=== PATIENT | female | born 1945 | race Caucasian/White ===

== ENCOUNTER → 2017-08-05 | Emergency (ER) | payer OTHER ==
[~2017-08-05] VITALS: Ht 157.5 cm; Wt 63.5 kg
[~2017-08-05] MED LIST: AMOX1TAB12 PO; KETO10TA2 PO; MUPIROCIN22 GM TOP; ORPHENADRINE C100 MG PO; SYNTHROID137 MCG
== END | disposition home or self-care (01) ==
LOC: ER 16:34
DX: S00.33XA Contusion of nose, initial encounter (principal); S19.9XXA Unspecified injury of neck, initial encounter; I10 Essential (primary) hypertension; W01.198A Fall on same level from slipping, tripping and stumbling with subsequent striking against other object, initial encounter; Y93.01 Activity, walking, marching and hiking; Y92.480 Sidewalk as the place of occurrence of the external cause; Y99.8 Other external cause status

== ENCOUNTER → 2017-08-12 11:32 | Outpatient (CLI) | payer OTHER | END | disposition home or self-care (01) | LOC: LAB 11:32 | DX: I10 Essential (primary) hypertension (principal); M54.5 Low back pain; E55.9 Vitamin D deficiency, unspecified; E03.8 Other specified hypothyroidism; E66.8 Other obesity; E11.51 Type 2 diabetes mellitus with diabetic peripheral angiopathy without gangrene; E11.9 Type 2 diabetes mellitus without complications; E11.42 Type 2 diabetes mellitus with diabetic polyneuropathy; K21.9 Gastro-esophageal reflux disease without esophagitis; K81.9 Cholecystitis, unspecified; E78.89 Other lipoprotein metabolism disorders; F41.8 Other specified anxiety disorders ==

== ENCOUNTER 2018-06-17 12:57 | Emergency (ER) | payer OTHER ==
[~2018-06-17] VITALS: Ht 157.5 cm; Wt 63.0 kg
== END 2018-06-17 18:05 | disposition home or self-care (01) ==
LOC: ER 12:57
DX: S00.83XA Contusion of other part of head, initial encounter (principal); S60.211A Contusion of right wrist, initial encounter; S80.01XA Contusion of right knee, initial encounter; W18.39XA Other fall on same level, initial encounter; Y93.89 Activity, other specified; Y92.89 Other specified places as the place of occurrence of the external cause; Y99.8 Other external cause status

== ENCOUNTER 2019-02-18 09:44 | Outpatient (CLI) | payer OTHER | END 2019-02-18 15:06 | disposition home or self-care (01) | LOC: LAB 09:44 | DX: M54.5 Low back pain (principal); I10 Essential (primary) hypertension; E55.9 Vitamin D deficiency, unspecified; E78.89 Other lipoprotein metabolism disorders; E03.8 Other specified hypothyroidism; E66.8 Other obesity; K21.9 Gastro-esophageal reflux disease without esophagitis; F41.8 Other specified anxiety disorders; K81.2 Acute cholecystitis with chronic cholecystitis ==

== ENCOUNTER 2019-03-14 11:50 | Outpatient (CLI) | payer OTHER | END 2019-03-14 12:47 | disposition home or self-care (01) | LOC: MAMO-SONO 11:50 | DX: M54.5 Low back pain (principal); E55.9 Vitamin D deficiency, unspecified; I10 Essential (primary) hypertension; E78.49 Other hyperlipidemia; E03.8 Other specified hypothyroidism; E66.8 Other obesity; K21.9 Gastro-esophageal reflux disease without esophagitis; F41.8 Other specified anxiety disorders; K81.9 Cholecystitis, unspecified; Z12.31 Encounter for screening mammogram for malignant neoplasm of breast ==